=== PATIENT | male | born 1960 | race Caucasian/White ===

== ENCOUNTER 2020-01-02 12:28 | Outpatient (CLI) | payer MEDICARE, SELFPAY ==
--- NOTE | 2020-01-02 12:42 | MR_ITS ---
WS: [id number] INDICATION: Pain in right wrist TECHNIQUE: MRI of the RIGHT wrist without gadolinium enhancement. Coronal T1, coronal PD fat sat, cor onal STIR, 3-D FSPGR, axial T2, axial PD, sagittal T1. FINDINGS: Normal anatomic alignment. Moderate degenerative narrowing at the radiocarpal joint. Wideni ng of the scapholunate interval measuring 3.7 mm. Normal distal radial ulnar joint. Scapholunate liga ments appear intact. Mild degenerative subchondral edema involving the distal radius and scaphoid. TF CC appears intact. Radial collateral and ulnar collateral ligaments appear intact. Mild degenerative changes involving the proximal and distal carpal row. Asymmetric degenerative change involving the di stal radial aspect of the scaphoid with subchondral cyst and ganglion cyst formation. Cluster of gang lion cysts measuring 9 x 11 mm. Edema within the distal scaphoid with subchondral cystic change likel y degenerative. Tenosynovitis along the extensor retinaculum and extensor carpi ulnaris. Increased signal involving the extensor carpi radialis longus consistent with tendinopathy. This is deep to the palpable marker. Small amount of tendinopathy involving the extensor pollicis brevis and abductor pollicis longus rosa elena ng the radial compartment. Small amount of fluid in the distal radial ulnar joint. TFCC appears intact MR/MR wrist RT wo con* [id number] IMPRESSION: 1. Advanced degenerative change with edema involving the mid and distal scapho id with subchondral cystic change. Advanced degenerative changes at the STT. 2. Degenerative cysts and small ganglion cysts radial aspect of the scaphoid a nd STT with a small cluster of cysts measuring 9 x 11 mm. 3. Moderate degenerative narrowing at the radial carpal joint worse involving the radial scaphoid. 4. Scapholunate distance within normal limits at 3.7 mm. Scapholunate ligament s appear intact. 5. Tenosynovitis along the extensor retinaculum and extensor carpi ulnaris. 6. Increased signal involving the extensor carpi radialis longus consistent wi th tendinopathy. This is deep to the palpable marker. Small amount of tendinopa thy involving the extensor pollicis brevis and abductor pollicis longus along t he radial compartment
--- NOTE | 2020-01-02 12:53 | MR_ITS ---
WS: [id number] INDICATION: Left wrist pain TECHNIQUE: MRI of the left wrist without gadolinium enhancement. Coronal T1, coronal PD fat sat, brynn nal STIR, 3-D FSPGR, axial T2, axial PD, sagittal T1. FINDINGS: Normal anatomic alignment. Moderate degenerative narrowing at the radiocarpal joint. Wideni ng of the scapholunate interval measuring 6.3 mm. Normal distal radial ulnar joint. Scapholunate liga ments appear intact. Mild degenerative subchondral edema involving the distal radius and scaphoid. TF CC appears intact. Radial collateral and ulnar collateral ligaments appear intact. Mild degenerative changes involving the proximal and distal carpal row. Widening of the scapholunate interval with mild proximal migration of the capitate. Proximal metatars als are normal in appearance. Normal carpal tunnel. Normal visualized extensor and flexor compartment tendons. MR/MR wrist LT wo con* [id number] IMPRESSION: 1. Widening of the scapholunate interval measuring 6.3 mm can be seen with sca pholunate dissociation. Mild proximal migration of the capitate. 2. Degenerative narrowing of the radiocarpal joint and radioscaphoid articulat ion. 3. No acute fractures. Mild degenerative changes involving the proximal and di stal carpal row. 4. No other significant findings.
== END 2020-01-02 12:29 | disposition home or self-care (01) ==
PROVIDERS: Visit Provider Family Medicine
DX: M25.531 Pain in right wrist (principal); M25.532 Pain in left wrist; M67.431 Ganglion, right wrist; M65.88 Other synovitis and tenosynovitis, other site
CPT/HCPCS: 73221

== ENCOUNTER → 2020-02-19 08:55 | Outpatient (BNVA) | payer OTHER, SELFPAY | PROVIDERS: Visit Provider Internal Medicine | DX: M19.90 Unspecified osteoarthritis, unspecified site (principal); Z79.899 Other long term (current) drug therapy; Z11.59 Encounter for screening for other viral diseases; Z11.1 Encounter for screening for respiratory tuberculosis; R76.8 Other specified abnormal immunological findings in serum; M65.9 Synovitis and tenosynovitis, unspecified | CPT/HCPCS: 36415; 99203 ==

== ENCOUNTER 2020-02-19 10:38 | Outpatient (CLI) | payer OTHER, SELFPAY ==
--- NOTE | 2020-02-19 11:00 | XR_ITS ---
WS: [id number] LEFT HAND: 2 VIEW(S) TECHNIQUE: PA and lateral. HISTORY: hand pain COMPARISON: None available. No acute fracture or dislocation. Small osteophyte from the ulnar side third metacarpal head. No eros ions. Additional degenerative changes at the wrist. Severe narrowing of the radiocarpal joint. Osteophytes and hypertrophic bone formation in the wrist. Scaphoid is poorly visualized. XR/XR hand LT 2V [id number] IMPRESSION: 1. 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 2. No erosions metacarpal heads.
--- NOTE | 2020-02-19 11:00 | XR_ITS ---
WS: [id number] RIGHT HAND: 2 VIEW(S) TECHNIQUE: PA, oblique and lateral. HISTORY: hand pain COMPARISON: None available. No acute fracture or dislocation. Deformity of the third terminal tuft is probably from arthritis. There is a small osteophyte from the ulnar side of the third metacarpal head. Severe narrowing of the radiocarpal joint with sclerosis and osteophytes in the carpus, greatest late rally. XR/XR hand RT 2V [id number] IMPRESSION: Moderate degenerative changes in the carpus. No erosions at the metacarpal heads.
== END 2020-02-19 10:39 | disposition home or self-care (01) ==
PROVIDERS: Family Provider Family Medicine; PCP Family Medicine; Visit Provider Internal Medicine
DX: M79.642 Pain in left hand (principal); M79.641 Pain in right hand
CPT/HCPCS: 73120; 86480; 86704; 86803; 86812; 87340

== ENCOUNTER → 2020-03-15 10:48 | Outpatient (BNVA) | payer MEDICARE, SELFPAY | PROVIDERS: Visit Provider Internal Medicine | DX: M19.90 Unspecified osteoarthritis, unspecified site (principal); R76.8 Other specified abnormal immunological findings in serum; Z79.52 Long term (current) use of systemic steroids | CPT/HCPCS: 99213 ==

== ENCOUNTER 2020-07-15 11:03 | Outpatient (CLI) | payer MEDICARE, SELFPAY ==
--- NOTE | 2020-07-15 11:13 | ECG_ITS ---
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 Interpretive Statements NAME OF STUDY: TREADMILL STRESS ECHOCARDIOGRAM INDICATION: Atypical Chest Pain PROCEDURE: At the baseline, the patient's blood pressure was 101/76 with a heart rate of 84. The baseline electrocardiogram showed normal sinus rhythm with normal ST-Ts. Poor R wave progression. The patient exercised for 5 minutes and 59 seconds on a standard Srikanth protocol. Patient attained a maximum heart rate of 165 beats per minute(104% of the maximum predicted heart rate) with a blood pressure at the peak exercise of 204/85 mm Hg. The EKG at the peak exercise revealed some nonspecific ST changes. Patient did not have any chest pain or any cardiac arrhythmias with the exercise During the recovery phase, there were no new changes. Blood pressure at the end of the recovery phase was 150/75 mm Hg with a heart rate of 98 per minute. Echocardiographic pictures were taken at the baseline, immediately following the peak exercise and during the recovery phase. CONCLUSION: 1. No significant EKG changes with the treadmill exercise 2. No exercise-induced chest pain or cardiac arrhythmia. Hypertensive response to exercise 3. Impaired exercise tolerance, attained a maximum of 7.0 METs 4. Please see separate report for the echocardiographic response to exercise. Electronically Signed On 07-22-2020 9:54:16 [employer] by Marsha Doyle M.D. [id number]
[2020-07-15 11:17] VITALS: BMI 19.6
[2020-07-15 11:53] VITALS: BP 150/75; PULSE 96
--- NOTE | 2020-07-15 12:00 | USCV_ITS ---
Stress Echo Sanjeev Brown Age: 60 Gender: M : 1960 Exam Date: 07/15/2020 10:11 Ordering Phys: Marsha Doyle MD ([email or web address]) Technologist: Lenore Caldwell [place] [facility] [place] [Add Site Location] Indication: chest pain Rhythm: Sinus Patient History: Chest pain Cardiac Medications: Medications in past 24 hours: Contrast: Stress Results Protocol: Srikanth Total dose(mL): Exercise Duration (min:sec): 5:59 METS: 7.0 Resting HR: 99 Resting BP: 101 / 76 Peak HR: 165 Peak BP: 204 / 110 Max Predicted HR: 158 104 % Max Predicted HR Target HR: 134 Double Product: [id number] Stress Summary: The patient's target heart rate was achieved BP Response: Normal Reason for Termination: Maximal effort/unable to continue Cardiac Symptoms: None ECG Analysis Resting ECG: Please see separate report Stress ECG: Please see separate report Arrhythmia: Please see separate report MEASUREMENTS (Male/Female) Normal Values FINDINGS The baseline echocardiogram revealed normal LV size ejection fraction of 60%. Segmental wall motion analysis revealed no gross wall motion normalities. Mild concentric left renal hypertrophy was noted. The tricuspid and mitral valve morphology appears within normal limits. With the peak exercise, there is good augmentation of all the segments with no exercise-induced wall motion normalities. During the recovery phase, patient did not have any new changes. CONCLUSIONS 1. Normal echocardiographic response to treadmill exercise. 2. No significant coronary ischemia, based on the above findings. 3. Please see separate report for the EKG portion of this test Dr Marsha Doyle MD [facility] (Electronically Signed) Final Date: 15 July 2020 18:20 S
== END 2020-07-15 11:04 | disposition home or self-care (01) ==
PROVIDERS: PCP Nurse Practitioner Family; Visit Provider Internal Medicine Cardiovascular Disease
DX: R07.89 Other chest pain (principal)
CPT/HCPCS: 93017; 93350

== ENCOUNTER 2020-10-12 06:37 | Outpatient (CLI) | payer OTHER, SELFPAY ==
--- NOTE | 2020-10-12 07:12 | MR_ITS ---
WS: [id number] MRI THORACIC SPINE WITHOUT CONTRAST TECHNIQUE: Sagittal T1, T2 and STIR imaging. Axial T2 imaging. Noncontrast imaging obtained. CLINICAL INFORMATION: PAIN IN THORACIC SPINE COMPARISON: None. FINDINGS: Mild thoracic curve. Mild thoracic kyphosis. No high-grade central canal stenosis. Cord signal is nor mal. Mild compression superior endplate T12 with edema consistent with acute compression. Moderate fa cet arthropathy in the lower thoracic spine. 20% loss vertebral body height. No significant retropuls ion. Normal caliber thoracic aorta. Adrenal glands are normal. Left renal cyst measuring 2.5 CM. Compressi on. No significant retropulsion. MR/MR thoracic spin wo con* [id number] IMPRESSION: 1. Recent mild acute compression T12 superior endplate with edema. No signific ant retropulsion. 2. No other compression fractures. 3. No high-grade central canal stenosis. Cord signal is normal. 4. Moderate facet arthropathy in the lower thoracic spine.
== END 2020-10-12 06:38 | disposition home or self-care (01) ==
LOC: RADSHAW 06:45
PROVIDERS: PCP Nurse Practitioner Family; Visit Provider Nurse Practitioner Family
DX: S22.089A Unspecified fracture of T11-T12 vertebra, initial encounter for closed fracture (principal); X58.XXXA Exposure to other specified factors, initial encounter; M47.814 Spondylosis without myelopathy or radiculopathy, thoracic region
CPT/HCPCS: 72146

== ENCOUNTER 2020-11-18 14:42 | Outpatient (CLI) | payer OTHER, SELFPAY ==
--- NOTE | 2020-11-18 14:47 | US_ITS ---
WS: [id number] RENAL ULTRASOUND HISTORY: CYST ON KIDNEY COMPARISON: None available. TECHNIQUE: 2-D and color Doppler imaging of the kidney submitted. Right kidney: 10.8 cm x 3.8 cm x 5.2 cm. Normal echogenicity with no hydronephrosis or mass. Left kidney: 11.5 cm x 4.4 cm x 4.7 cm. Normal size kidney. Lobulated cyst in the mid kidney measures 3.6 x 2.6 x 2.8 cm. Aorta: Normal. Urinary Bladder: Normal distention. US/US renal BI* [id number] IMPRESSION: 1. No hydronephrosis. 2. Simple LEFT renal cyst.
== END 2020-11-18 14:43 | disposition home or self-care (01) ==
LOC: RAD 14:44
PROVIDERS: PCP Nurse Practitioner Family; Visit Provider Nurse Practitioner Family
DX: N28.1 Cyst of kidney, acquired (principal)
CPT/HCPCS: 76770

== ENCOUNTER 2021-02-04 10:28 | Outpatient (CLI) | payer OTHER, SELFPAY ==
--- NOTE | 2021-02-04 10:37 | MR_ITS ---
WS: [id number] MRI LUMBAR SPINE NONCONTRAST HISTORY: LOW BACK PAIN COMPARISON: MRI thoracic spine 10/12/2020 TECHNIQUE: Sagittal and axial multisequence imaging is submitted. Mild straightening of the normal lumbar lordosis. Benign hemangioma at L2. No marrow edema or fractur e in the lumbar spine. Subacute 10% compression fracture at T12 is identified. This will be addressed within the dedicated thoracic spine MRI report. Mild disc desiccation at L3-4, L4-5 and L5-S1. Conus terminates normally at L1-2 disc level. L1-L2: Normal. L2-L3: Mild annular disc bulging with mild ligamentum flavum hypertrophy and facet arthritis. Moderat e narrowing of the LEFT subarticular recess with encroachment upon the traversing L2 nerve root. Mild bilateral foraminal narrowing. L3-L4: Very mild annular disc bulging and osteophytic ridging. LEFT foraminal disc protrusion with an nular fissure. Disc protrusion is causing moderate LEFT subarticular recess stenosis and mild foramin al narrowing. Disc contacts the L3 and L4 nerve roots on the LEFT. Small amount of fluid in the facet joints bilaterally. L4-L5: Mild annular disc bulging and mild ligamentum flavum disease and facet arthritis. Increase flu id in the facet joints, LEFT greater than RIGHT. Disc contact on the ventral thecal sac. Mild bilater al subarticular recess and foraminal stenosis. L5-S1: Mild annular disc bulging and osteophytic ridging. Disc approaches but does not displace the S 1 nerve roots bilaterally. Visualized retroperitoneum is normal. MR/MR lumbar spine wo con* [id number] IMPRESSION: 1. LEFT subarticular recess and foraminal disc protrusion with fissures at L3- 4. Disc is contacting the L3 and L4 nerve roots on the LEFT. 2. Moderate LEFT subarticular recess stenosis at L2-3 with disc encroachment u haile the traversing L2 nerve root. Mild bilateral foraminal narrowing. 3. Mild bilateral subarticular recess and foraminal stenosis L4-5 due to disc and osteophyte disease. Disc slightly displaces the L5 nerve roots bilaterally. 4. Subacute 10% T12 compression fracture. This will be addressed in the thorac ic MRI report.
--- NOTE | 2021-02-04 10:37 | MR_ITS ---
WS: [id number] MRI THORACIC SPINE noncontrast. HISTORY: PAIN IN THORACIC SPINE COMPARISON: 10/12/2020 TECHNIQUE: Multiplanar sequences are performed in sagittal and axial planes. Subacute T12 compression fracture by 15-20%. There is still a small amount of edema along the superio r endplate of T12 with extension into the posterior elements. No retropulsion or progression of the f racture. No additional acute fractures are identified. Benign hemangioma in T5. Mild curvature of the thoracic spine. Signal within the cord is normal. T1-2: Normal. T2-3: Normal. T3-4: Bilateral facet joint arthritis with mild foraminal narrowing. T4-5: Small RIGHT paracentral disc protrusion and mild bilateral foraminal narrowing, RIGHT greater than LEFT. T5-6: Mild facet arthritis. T6-7: Mild facet arthritis. T7-8: Normal. T8-9: Moderate bilateral facet joint arthritis and foraminal narrowing. T9-10: Moderate bilateral facet joint arthritis. Moderate bilateral foraminal narrowing. T10-11: Moderate facet joint arthritis with mild bilateral foraminal narrowing. T11-12: Facet joint arthritis causing moderate foraminal narrowing. LEFT renal cyst measures 2.8 cm. MR/MR thoracic spin wo con* [id number] IMPRESSION: 1. Subacute stable T12 compression fracture by 15-20%. No retropulsion. No pro gression since 10/12/2020. 2. Additional multilevel facet joint arthritis as described above. No high-gra de central or foraminal stenosis.
== END 2021-02-04 10:29 | disposition home or self-care (01) ==
LOC: RADSHAW 10:33
PROVIDERS: PCP Nurse Practitioner Family; Visit Provider Nurse Practitioner Family
DX: M54.5 Low back pain (principal); M54.6 Pain in thoracic spine; S22.089A Unspecified fracture of T11-T12 vertebra, initial encounter for closed fracture; X58.XXXA Exposure to other specified factors, initial encounter; M47.814 Spondylosis without myelopathy or radiculopathy, thoracic region; M48.061 Spinal stenosis, lumbar region without neurogenic claudication; M25.78 Osteophyte, vertebrae
CPT/HCPCS: 72146; 72148

== ENCOUNTER → 2021-02-15 10:07 | Outpatient (BNVA) | payer OTHER, SELFPAY | PROVIDERS: PCP Nurse Practitioner Family; Referring Provider Nurse Practitioner Family; Visit Provider Orthopaedic Surgery | DX: S22.080A Wedge compression fracture of T11-T12 vertebra, initial encounter for closed fracture (principal); X58.XXXA Exposure to other specified factors, initial encounter | CPT/HCPCS: 72080 ==

== ENCOUNTER 2021-04-27 14:16 | Outpatient (CLI) | payer OTHER, SELFPAY ==
--- NOTE | 2021-04-27 14:34 | MM_ITS ---
WS: [id number] BILATERAL DIGITAL DIAGNOSTIC MAMMOGRAM MAMMOGRAPHY WITH CAD CLINICAL INFORMATION: LEFT BREAST LUMP APPROX 1.5 CM AT NIPPLE COMPARISON: None. TECHNIQUE: Bilateral CC, MLO, and ML views. FINDINGS: Scattered fibroglandular densities bilaterally. Palpable marker overlying the left areola. Subareolar dense parenchymal tissue is slightly more prominent in comparison to the right. Ultrasound is pendin g. ULTRASOUND BREAST LEFT TECHNIQUE: Ultrasound left breast focused area of concern. CLINICAL INFORMATION: LEFT BREAST LUMP APPROX 1.5 CM AT NIPPLE FINDINGS: Ultrasound left breast left areola in the area of palpable concern. Dense shadowing underlying parenc hymal tissue compatible with gynecomastia. No cystic or solid lesions. No lesions to target for biops y. Right nipple comparison is unremarkable. Findings have a benign appearance. MM/[place] [id number] IMPRESSION: BI-RADS: 2-Benign FOLLOW UP: See Report
== END 2021-04-27 14:17 | disposition home or self-care (01) ==
LOC: RADSHAW 14:19
PROVIDERS: PCP Nurse Practitioner Family; Visit Provider Registered Nurse
DX: N63.42 Unspecified lump in left breast, subareolar (principal)
CPT/HCPCS: 76642; 77066

== ENCOUNTER 2021-10-07 08:25 | Outpatient (CLI) | payer OTHER, SELFPAY ==
--- NOTE | 2021-10-07 | US_ITS ---
WS: [id number] RIGHT UPPER QUADRANT ULTRASOUND HISTORY: ELEVATED LIVER ENZYMES COMPARISON: 11/18/2020 Liver: 15.8 cm in length. Normal size liver. No bile duct dilatation or mass. Portal Vein: Normal hepatopetal flow with monophasic waveform. Gallbladder: Normally distended gallbladder with no stones or wall thickening. CBD: 0.2 cm Pancreas: Normal size and echogenicity. Right kidney: 9.8 cm in length. Normal size and echogenicity. No hydronephrosis or mass. Aorta and IVC: Unremarkable abdominal aorta and IVC. There is a very tiny amount of fluid in Morison's pouch. US/US liver [id number] IMPRESSION: 1. Normal gallbladder. 2. Very tiny amount of fluid in Morison's pouch of uncertain etiology. RIGHT u pper quadrant structures are negative otherwise.
== END 2021-10-07 08:26 | disposition home or self-care (01) ==
PROVIDERS: PCP Nurse Practitioner Family; Visit Provider Registered Nurse
DX: R94.5 Abnormal results of liver function studies (principal)
CPT/HCPCS: 76705

== ENCOUNTER → 2022-11-22 11:05 | Outpatient (BNVA) | payer OTHER, SELFPAY | PROVIDERS: PCP Nurse Practitioner Family; Referring Provider Nurse Practitioner Family; Visit Provider Orthopaedic Surgery | DX: M19.91 Primary osteoarthritis, unspecified site (principal); X50.1XXA Overexertion from prolonged static or awkward postures, initial encounter; S46.011A Strain of muscle(s) and tendon(s) of the rotator cuff of right shoulder, initial encounter | CPT/HCPCS: 73030 ==